=== PATIENT | male | born 1940 | race Caucasian/White ===

== ENCOUNTER 2017-10-30 10:06 | Day surgery (SDC) | payer MEDICARE ==
[2017-10-29 12:55] VITALS: BMI 23.9
[2017-10-30 10:37] LABS: Hemoglobin 14.9 g/dL (14.0-18.0)
[2017-10-30 10:51] LABS: Anion Gap 14 mmol/L (10-20); BUN (Urea Nitrogen) 9 mg/dL (8.4-25.7); Calc. Creatinine Clearance 79 mL/min (70-130); Calcium 9.6 mg/dL (7.8-10.44); Carbon Dioxide 26 mmol/L (23-31); Chloride 103 mmol/L (98-107); Estimated GFR-MDRD Greater than 90; Glucose 117 mg/dL (83-110); Potassium 4.4 mmol/L (3.5-5.1); Sodium 139 mmol/L (136-145)
[2017-10-30] MEDS ORDERED: Bacitracin Zinc Ointment 30 gm TUBE ONE (10:52)
[2017-10-30] MEDS ORDERED: Lidocaine 1% w/Epinephrine 1:100K 30 ML VIAL ONE (10:52)
[2017-10-30] MEDS ORDERED: Fentanyl 100 MCG/2 ML VIAL ONE (11:01)
[2017-10-30] MEDS ORDERED: Lidocaine 1% PF 5 ML VIAL ONE (12:03)
[2017-10-30] MEDS ORDERED: PHENYLEPHRINE-NS 100 MCG/ML 10 ML SYRINGE ONE (12:03)
[2017-10-30] MEDS ORDERED: ePHEDrine/0.9% NaCl/PF SYRINGE 50 mg/10 ml ONE (12:03)
[2017-10-30] MEDS ORDERED: Dexamethasone 20 MG/5 ML VIAL ONE (12:03)
[2017-10-30] MEDS ORDERED: Ondansetron HCl/PF 4 MG/2 ML Vial ONE (12:03)
[2017-10-30] MEDS ORDERED: PROPOFOL 200 MG/20 ML VIAL ONE (12:03)
--- NOTE | 2017-10-30 18:39 | OP ---
DATE OF PROCEDURE: 10/30/2017 PREOPERATIVE DIAGNOSIS: Left parotid mass. POSTOPERATIVE DIAGNOSIS: Left parotid mass. PROCEDURE PERFORMED: Left superficial parotidectomy with facial nerve dissection using facial nerve monitoring. PROCEDURE IN DETAIL: After consent was obtained, the patient was identified, brought to the operatin g room and placed on the table in supine position. General endotracheal anesthesia was obtained and the patient was positioned for surgery. Facial nerve monitor was attached and documented to be worki ng well. We then proceeded with positioning, prepping and draping the patient. Area of intended inc ision was infiltrated with 1% lidocaine with 1:100,000 epinephrine and the skin incision was made ant erior to the left ear and carried down 2 fingerbreadths below the angle of the jaw. Flaps were eleva michael along the parotid fascia and facial nerve was ultimately dissected and identified. We then disse cted the trunk and its branches and that was able to take down a lipomatous appearing lesion within t he parotid gland. Care was made not to injure the facial nerve, the specimen was sent for permanent histologic evaluation and was removed. Bleedin g points were cauterized with the bipolar as encountered or suture ligated. We then turned attention to wound closure. Wound was again closed in layers with 5-0 Monocryl for the deep layers and 6-0 Pr olene for the skin. Sterile bandages were applied. The patient was awakened and taken to recovery r oom where he remained in a stable condition prior to discharge home.
--- NOTE | 2017-11-02 23:11 | EKG ---
Test Reason : PREOP Blood Pressure : / mmHG Vent. Rate : 066 BPM Atrial Rate : 066 BPM P-R Int : 144 ms QRS Dur : 092 ms QT Int : 382 ms P-R-T Axes : 087 063 064 degrees QTc Int : 400 ms Normal sinus rhythm Normal ECG No previous ECGs available Confirmed by Callie MURILLO ([id number]) on 11/02/2017 11:11:01 PM Referred By: PEREZ Confirmed By:Callie MURILLO
== END 2017-10-30 14:30 | disposition home or self-care (01) ==
LOC: SDC 10:06
PROVIDERS: ATTEND Specialist
PROC: 0CB90ZZ Excision of Left Parotid Gland, Open Approach (ICD-10-PCS; principal; 2017-10-30)
DX: K11.8 Other diseases of salivary glands (principal); K11.1 Hypertrophy of salivary gland; H60.92 Unspecified otitis externa, left ear; H90.5 Unspecified sensorineural hearing loss; Z87.891 Personal history of nicotine dependence; Z88.2 Allergy status to sulfonamides; Z79.82 Long term (current) use of aspirin; Z79.899 Other long term (current) drug therapy
CPT/HCPCS: 36415; 80048; 85014; 85018; 88304; 93005; 93010; J1100; J2001; J2405; J2704; J3010